=== PATIENT | female | born 1945 ===

== ENCOUNTER 2021-05-07 06:43 | Day surgery (SDC) | payer OTHER ==
[~2021-05-07 06:43] MED LIST: DIGOXIN PO; HYDRALAZINE HCL50 MG PO; JANUVIA50 MG PO; SIMVASTA PO; TOPROL XL25 M1 PO
[2021-05-07] MEDS ORDERED: BACTRIM DS TAB1 EACH PO (18:44)
[2021-05-07] MEDS ORDERED: INTEGRA PLUS C1 EACH PO (18:44)
[2021-05-07] MEDS ORDERED: OXYC1TAB9 PO (18:44)
== END 2021-05-07 22:30 | disposition home or self-care (01) ==
LOC: CIR.AMB 06:43
PROVIDERS: ATTEND Orthopaedic Surgery Sports Medicine
DX: S42.232A 3-part fracture of surgical neck of left humerus, initial encounter for closed fracture (principal); Z20.822 Contact with and (suspected) exposure to COVID-19
CPT/HCPCS: 23615; 23406; C1776